=== PATIENT | female | born 1970 | race Caucasian/White ===

== ENCOUNTER 2019-11-28 09:26 | Day surgery (SDC) | payer OTHER, SELFPAY ==
[~2019-11-28] VITALS: Ht 157.5 cm; Wt 89.4 kg
[~2019-11-28 09:26] MED LIST: PRON INH
[2019-11-28] MEDS ORDERED: fentaNYL citrate 0.05 MG/ML VIAL ONE (12:29)
[2019-11-28] MEDS ORDERED: LIDOCAINE 2% 100 MG/5 ML UJET TP ONE ×2 (12:29→16:50)
[2019-11-28] MEDS ORDERED: fentaNYL citrate 0.05 MG/ML VIAL IM ONE (16:50)
[2019-11-28] MEDS ORDERED: fentaNYL citrate 0.05 MG/ML VIAL IVP ONE (16:55)
== END 2019-11-28 13:20 | disposition home or self-care (01) ==
LOC: MDS 09:26 → MMU 09:27 → MDS 13:20
PROVIDERS: ATTEND Internal Medicine Gastroenterology
DX: Z12.11 Encounter for screening for malignant neoplasm of colon (principal); D12.8 Benign neoplasm of rectum; Z20.828 Contact with and (suspected) exposure to other viral communicable diseases
CPT/HCPCS: 45385; 81025; J3010; U0003